=== PATIENT | male | born 1950 | race Caucasian/White ===

== ENCOUNTER 2024-03-18 10:31 | Day surgery (SDC) | payer MEDICARE ==
[2024-03-18] MEDS: Lactated Ringers 1,000 ML IV SCH (10:54)
[2024-03-18] MEDS ORDERED: fentaNYL 100 MCG/2 ML SDV ONE (12:18)
[2024-03-18] MEDS ORDERED: Propofol 200 MG/20 ML SDV ONE (12:18)
== END 2024-03-18 14:00 | disposition home or self-care (01) ==
LOC: VM.SDS 10:31
PROVIDERS: ATTEND Family Medicine
DX: K22.10 Ulcer of esophagus without bleeding (principal); J44.9 Chronic obstructive pulmonary disease, unspecified; E78.2 Mixed hyperlipidemia; Z87.891 Personal history of nicotine dependence; K44.9 Diaphragmatic hernia without obstruction or gangrene
CPT/HCPCS: 00731; 88305; 99100; J2704; J3010; J7120